=== PATIENT | female | born 1980 | race Two or more races ===

== ENCOUNTER 2019-02-13 07:02 | Day surgery (SDC) | payer OTHER | END 2019-02-13 13:40 | disposition home or self-care (01) | LOC: CIR.AMB 07:02 | DX: N84.0 Polyp of corpus uteri (principal) ==

== ENCOUNTER 2021-11-19 11:45 | Inpatient (IN) | payer OTHER ==
[~2021-11-19] VITALS: Ht 160 cm; Wt 77.1 kg
[2021-11-19] MEDS ORDERED: PRENATABS RX T1 EACH PO (13:56)
[2021-11-19] MEDS ORDERED: IRON325 MG PO (13:56)
== END 2021-12-05 13:50 | disposition home or self-care (01) | DRG 785 ==
LOC: LDR 12-03 07:00 → SURG-SUITE 12-03 17:17 → O/R 12-03 17:17 → SURG-SUITE 12-03 17:27
PROVIDERS: ADMIT Obstetrics & Gynecology; ATTEND Obstetrics & Gynecology
PROC: 0UB70ZZ Excision of Bilateral Fallopian Tubes, Open Approach (ICD-10-PCS; 2021-12-03)
PROC: 4A1HXCZ Monitoring of Products of Conception, Cardiac Rate, External Approach (ICD-10-PCS; 2021-12-03)
PROC: 10D00Z1 Extraction of Products of Conception, Low, Open Approach (ICD-10-PCS; principal; 2021-12-03 16:15)
DX: O34.211 Maternal care for low transverse scar from previous cesarean delivery (principal); Z30.2 Encounter for sterilization; Z37.0 Single live birth; Z20.822 Contact with and (suspected) exposure to COVID-19; Z3A.39 39 weeks gestation of pregnancy

== ENCOUNTER 2022-02-17 05:00 | Day surgery (SDC) | payer OTHER ==
[~2022-02-17 05:00] MED LIST: IRON325 MG PO; PRENATABS RX T1 EACH PO
== END 2022-02-17 13:00 | disposition home or self-care (01) ==
LOC: CIR.AMB 05:00
PROVIDERS: ATTEND Specialist
DX: K42.9 Umbilical hernia without obstruction or gangrene (principal); E16.2 Hypoglycemia, unspecified; Z86.73 Personal history of transient ischemic attack (TIA), and cerebral infarction without residual deficits